=== PATIENT | female | born 1970 | race Caucasian/White ===

== ENCOUNTER 2018-11-30 17:59 | Emergency (ER) | payer SELFPAY ==
[2018-11-30] MEDS ORDERED: Ketorolac 60 MG/2 ML SDV IM ONE (18:23)
--- NOTE | 2018-11-30 18:30 | EDM.PDOC ---
ED HPI GENERAL MEDICAL PROBLEM - General Chief Complaint: Back Pain or Injury Stated Complaint: BACK INJURY Time Seen by Provider: 11/30/18 18:09 Source of Information: Reports: Patient History Limitations: Reports: No Limitations - History of Present Illness INITIAL COMMENTS - FREE TEXT/NARRATIVE: HISTORY AND PHYSICAL: History of present illness: Patient is a 48-year-old female presents to the ED today with concern of mid back pain/spasm since this morning. Patient states she was in the shower washing her hair when she began to feel like the muscles were phil in her mid back. Patient states over the course of the day she's noticed that it's been feeling more tight. Patient denies any trauma or injury. Patient denies any other symptoms. Patient denies any health history. Patient denies any loss or retention of bowel and bladder function. Patient denies any saddle anesthesia. Patient denies fever, chills, chest pain, shortness of breath, or cough. Denies headache, neck stiff ness, change in vision, syncope, or near syncope. Denies nausea, vomiting, abdominal pain, diarrhea, constipation, or dysuria. Has not noted any blood in urine or stool. Patient has been eating and drinking appropriately. Review of systems: As per history of present illness and below otherwise all systems reviewed and negative. Past medical history: As per history of present illness and as reviewed below otherwise noncontributory. Surgical history: As per history of present illness and as reviewed below otherwise noncontributory. Social history: See social history for further information Family history: As per history of present illness and as reviewed below otherwise noncontributory. Physical exam: General: Patient is alert, oriented, and in no acute distress. Patient sitting comfortably on exam table. HEENT: Atraumatic, normocephalic, pupils equal and reactive bilaterally, negative for conjunctival pallor or scleral icterus, mucous membranes moist, TMs normal bilaterally, throat clear, neck supple, nontender, trachea midline. No drooling or trismus noted. No meningeal signs. No hot potato voice noted. Lungs: Clear to auscultation, breath sounds equal bilaterally, chest nontender. Heart: S1S2, regular rate and rhythm without overt murmur Abdomen: Soft, nondistended, nontender. Negative for masses or hepatosplenomegaly. Negative for costovertebral tenderness. Pelvis: Stable nontender. Genitourinary: Deferred. Rectal: Deferred. Skin: Intact, warm, dry. No lesions or rashes noted. Extremities: Atraumatic, negative for cords or calf pain. Neurovascular unremarkable. No obvious deformity of the complete spine. No step-offs or crepitus on palpation. Patient does have moderate pain to palpation of the paraspinous muscles surrounding the thoracic spine but no point tenderness of the complete spine and spinous process. Patient has full range of motion of the cervical and lumbar spine but limited range of motion of thoracic due to pain. Neuro: Awake, alert, oriented. Cranial nerves II through XII unremarkable. Cerebellum unremarkable. Motor and sensory unremarkable throughout. Exam nonfocal. Notes: Discussed the importance for follow-up with primary care provider Voices understanding and is agreeable to plan of care. Denies any further questions or concerns at this time. Diagnostics: thoracic x-ray Therapeutics: Toradol Prescription: diclofenac, Flexeril Impression: Thoracic back pain Plan: 1. Rest, ice or heat the affected area. You can apply ice and/or heat 15 minutes on, 15 minutes off. 2. Tylenol as directed for pain management or discomfort. Take medication as prescribed 3. Follow up with the primary care provider as discussed. Return to the ED as needed and as discussed. Definitive disposition and diagnosis as appropriate pending reevaluation and review of above. Back Pain Score (Numeric/FACES): 7 - Related Data Allergies Allergy/AdvReac Type Severity Reaction Status Date / Time No Known Allergies Allergy Verified 11/30/18 18:10 Home Meds: Home Meds . [No Known Home Meds] 11/30/18 [History] Past Medical History Other Musculoskeletal History: right knee pain - Infectious Disease History Infectious Disease History: Reports: Chicken Pox Social & Family History - Family History Family Medical History: Noncontributory - Tobacco Use Smoking Status *Q: Current Every Day Smoker Years of Tobacco use: 29 Packs/Tins Daily: 1 - Caffeine Use Caffeine Use: Reports: Coffee - Recreational Drug Use Recreational Drug Use: No ED ROS GENERAL - Review of Systems Review Of Systems: ROS reveals no pertinent complaints other than HPI. ED EXAM, GENERAL - Physical Exam Exam: See Below (see dictation) Course - Vital Signs Last Recorded V/S: Last Vital Signs Temp 36.6 C 11/30/18 18:11 Pulse 95 11/30/18 18:11 Resp 16 11/30/18 18:11 BP 147/100 H 11/30/18 18:11 Pulse Ox 95 11/30/18 18:11 - Orders/Labs/Meds Orders: Active Orders 24 hr Category Date Time Status CULTURE URINE [RM] Stat Lab 11/30/18 18:53 Received Labs: Laboratory Tests 11/30/18 Range/Units 18:53 Urine Color YELLOW Urine Appearance HAZY Urine pH 5.5 (5.0-8.0) Ur Specific [place] >= 1.030 (1.001-1.035) Urine Protein NEGATIVE (NEGATIVE) mg/dL Urine Glucose (UA) NEGATIVE (NEGATIVE) mg/dL Urine Ketones NEGATIVE (NEGATIVE) mg/dL Urine Occult Blood NEGATIVE (NEGATIVE) Urine Nitrite NEGATIVE (NEGATIVE) Urine Bilirubin NEGATIVE (NEGATIVE) Urine Urobilinogen 0.2 (<2.0) EU/dL Ur Leukocyte Esterase TRACE H (NEGATIVE) Urine RBC 1-3 (0-2/HPF) Urine WBC 2-4 (0-5/HPF) Ur Epithelial Cells MANY (NONE-FEW) Urine Bacteria FEW (NEGATIVE) Urine Mucus LIGHT (NONE-MOD) Meds: Medications Discontinued Medications Generic Name Dose Route Start Last Admin Trade Name Freq PRN Reason Stop Dose Admin Ketorolac Tromethamine 60 mg 11/30/18 18:23 11/30/18 18:58 Toradol IM 11/30/18 18:24 60 mg ONETIME ONE Administration Departure - Departure Time of Disposition: 19:39 Disposition: Home, Self-Care 01 Clinical Impression: Thoracic back pain Qualifiers: Chronicity: acute Back pain laterality: unspecified Qualified Code(s): M54.6 - Pain in thoracic spine - Discharge Information Referrals: PCP,Unknown [Primary Care Provider] - Forms: ED Department Discharge Additional Instructions: The following information is given to patients seen in the emergency department who are being discharged to home. This information is to outline your options for follow-up care. We provide all patients seen in our emergency department with a follow-up referral. The need for follow-up, as well as the timing and circumstances, are variable depending upon the specifics of your emergency department visit. If you don't have a primary care physician on staff, we will provide you with a referral. We always advise you to contact your personal physician following an emergency department visit to inform them of the circumstance of the visit and for follow-up with them and/or the need for any referrals to a consulting specialist. The emergency department will also refer you to a specialist when appropriate. This referral assures that you have the opportunity for follow-up care with a specialist. All of these measure are taken in an effort to provide you with optimal care, which includes your follow-up. Under all circumstances we always encourage you to contact your private physician who remains a resource for coordinating your care. When calling for follow-up care, please make the office aware that this follow-up is from your recent emergency room visit. If for any reason you are refused follow-up, please contact the [facility] Emergency Department at and asked to speak to the emergency department charge nurse. [facility] [address] [place], [place] [id number] [place] [address] 1. Rest, ice or heat the affected area. You can apply ice and/or heat 15 minutes on, 15 minutes off. 2. Tylenol as directed for pain management or discomfort. Take medication as prescribed 3. Follow up with the primary care provider as discussed. Return to the ED as needed and as discussed. - My Orders Last 24 Hours: My Active Orders 11/30/18 18:53 CULTURE URINE [RM] Stat - Assessment/Plan Last 24 Hours: My Active Orders 11/30/18 18:53 CULTURE URINE [RM] Stat
--- NOTE | 2018-11-30 19:39 | CR ---
2 views of the thoracic and lumbar spine. INDICATION: Pain. IMPRESSION: Underpenetrated lower thoracic region no other significant abnormality of the spine. No signs of compression fracture. Incidental calcified plaques in the abdominal aorta. FINDINGS: The lateral view is not optimally penetrated in the lower thoracic. Minimal broad-based curvature convex right. No listhesis. Disc spaces are normal. No obvious visualized compression fractures, lytic or sclerotic changes. Dictated by Jorge West MD @ Nov 30 2018 7:37PM Signed by Dr. Jorge West @ Nov 30 2018 7:37PM
[2018-11-30 19:53] VITALS: BP 147/92
== END 2018-11-30 19:51 | disposition home or self-care (01) ==
LOC: MW.ED 17:59
DX: M54.6 Pain in thoracic spine (principal); F17.210 Nicotine dependence, cigarettes, uncomplicated
CPT/HCPCS: 72080; 81001; 87086; 87088; 87186; 96372; 99283; J1885

== ENCOUNTER 2020-03-27 15:15 | Emergency (ER) | payer BC ==
[2020-03-27] MEDS ORDERED: Ketorolac 60 MG/2 ML SDV IM ONE (15:54)
--- NOTE | 2020-03-27 15:58 | EDM.PDOC ---
ED HPI GENERAL MEDICAL PROBLEM - General Chief Complaint: Back Pain or Injury Stated Complaint: BACK PAIN CAN NOT BEND Time Seen by Provider: 03/27/20 15:19 Source of Information: Reports: Patient History Limitations: Reports: No Limitations - History of Present Illness INITIAL COMMENTS - FREE TEXT/NARRATIVE: HISTORY AND PHYSICAL: History of present illness: Patient is a 49-year-old female who presents emergency room today with concern of low back pain that started last night and worsened this morning when she woke up. Patient states her low back feels "stiff ". Patient states that she has had this low back pain before about 1 year ago and states that she had imaging performed in did not find anything causing her symptoms on imaging but states at that time she did have a urinary tract infection. Patient states that she has not had low back pain since. Patient denies any direct trauma or injury. Patient denies any saddle anesthesia or loss or retention of bowel bladder function. Patient states that she has been able to walk but does have pain with bending over. Patient denies any other associated symptoms. Patient denies fever, chills, chest pain, shortness of breath, or cough. Denies headache, neck stiff ness, change in vision, syncope, or near syncope. Denies nausea, vomiting, abdominal pain, diarrhea, constipation, or dysuria. Has not noted any blood in urine or stool. Patient has been eating and drinking appropriately. Review of systems: As per history of present illness and below otherwise all systems reviewed and negative. Past medical history: As per history of present illness and as reviewed below otherwise noncontributory. Surgical history: As per history of present illness and as reviewed below otherwise noncontributory. Social history: See social history for further information Family history: As per history of present illness and as reviewed below otherwise noncontributory. Physical exam: General: Patient is alert, oriented, and in no acute distress. Patient sitting comfortably on exam table. Vitals stable and reviewed by me. HEENT: Atraumatic, normocephalic, pupils equal and reactive bilaterally, negative for conjunctival pallor or scleral icterus, mucous membranes moist, TMs normal bilaterally, throat clear, neck supple, nontender, trachea midline. No drooling or trismus noted. No meningeal signs. No hot potato voice noted. Lungs: Clear to auscultation, breath sounds equal bilaterally, chest nontender. Heart: S1S2, regular rate and rhythm without overt murmur Abdomen: Soft, nondistended, nontender. Negative for masses or hepatosplenomegaly. Negative for costovertebral tenderness. Pelvis: Stable nontender. Genitourinary: Deferred. Rectal: Deferred. Skin: Intact, warm, dry. No lesions or rashes noted. Extremities: No obvious deformity of the complete spine. No step-offs, crepitus, or point tenderness to palpation of the complete spine. Patient does have full range of motion of the complete spine but does have pain with range of motion of the lumbar spine. Heel toe gait intact, Patellar reflex intact bilaterally. sLR intact bilaterally. Otherwise, atraumatic, negative for cords or calf pain. Neurovascular unremarkable. Neuro: Awake, alert, oriented. Cranial nerves II through XII unremarkable. Cerebellum unremarkable. Motor and sensory unremarkable throughout. Exam nonfocal. Notes: Upon reevaluation of patient, she expresses improvement in symptoms today in the ED. Strict return precautions thoroughly discussed with patient. Discussed the importance for follow up with a primary care provider. Voices understanding and is agreeable to plan of care. Denies any further questions or concerns at this time. Diagnostics: UA/Uhcg (patient offered XR of lumbar spine but she declines) Therapeutics: Toradol Prescription: Bactrim DS, Diclofenac, Flexeril Impression: Low back pain Urinary tract infection Plan:. 1. When resting please lay on a flat firm surface. Limit your mobility to prevent muscle stiffness. Get up to ambulate/move around/gentle stretching multiple times throughout the day. May alternate heat and ice to painful areas. 2. Tylenol as needed for back pain. Otherwise, take the prescribed Flexeril and diclofenac as directed. Diclofenac as an anti-inflammatory medication so do not take any additional NSAIDs with this medication, such as naproxen, ibupro fen, or Aleve. Flexeril, this medication may cause drowsiness, so do not take it while driving or needing to be functioning outside of the home. 3. Follow-up with your primary care provider as discussed. Return to the ED as needed and as discussed. Take medication as prescribed. Definitive disposition and diagnosis as appropriate pending reevaluation and review of above. lower back Pain Score (Numeric/FACES): 5 - Related Data Allergies Allergy/AdvReac Type Severity Reaction Status Date / Time No Known Allergies Allergy Verified 03/27/20 15:28 Home Meds: Home Meds Cyclobenzaprine [Flexeril] 10 mg PO TID PRN #9 tab 03/27/20 [Rx] Diclofenac Sodium [Voltaren] 75 mg PO BIDMEALS PRN #15 tab.cr 03/27/20 [Rx] Non-Formulary Medication [NF Drug] 1 each PO DAILY 03/27/20 [History] Sulfamethoxazole/Trimethoprim [Bactrim Ds Tablet] 1 each PO BID #20 tablet 03/27/20 [Rx] Past Medical History Cardiovascular History: Reports: Hypertension Other Musculoskeletal History: right knee pain - Infectious Disease History Infectious Disease History: Reports: Chicken Pox - Past Surgical History HEENT Surgical History: Reports: Oral Surgery Female Surgical History: Reports: Section Musculoskeletal Surgical History: Reports: Arthroscopic Knee Social & Family History - Family History Family Medical History: No Pertinent Family History - Tobacco Use Tobacco Use Status *Q: Current Every Day Tobacco User Years of Tobacco use: 20 Packs/Tins Daily: 1 - Caffeine Use Caffeine Use: Reports: Soda, Tea - Recreational Drug Use Recreational Drug Use: No ED ROS GENERAL - Review of Systems Review Of Systems: Comprehensive ROS is negative, except as noted in HPI. ED EXAM, GENERAL - Physical Exam Exam: See Below (see dictation) Course - Vital Signs Last Recorded V/S: Last Vital Signs Temp 98.1 F 03/27/20 15:29 Pulse 107 H 03/27/20 15:29 Resp 18 03/27/20 15:29 BP 147/84 H 03/27/20 15:29 Pulse Ox 96 03/27/20 15:29 - Orders/Labs/Meds Orders: Active Orders 24 hr Category Date Time Status CULTURE URINE [RM] Stat Lab 03/27/20 16:40 Received Labs: Laboratory Tests 03/27/20 03/27/20 Range/Units 16:40 16:40 Urine Color YELLOW Urine Appearance HAZY Urine pH 6.0 (5.0-8.0) Ur Specific [place] 1.025 (1.001-1.035) Urine Protein NEGATIVE (NEGATIVE) mg/dL Urine Glucose (UA) NEGATIVE (NEGATIVE) mg/dL Urine Ketones TRACE H (NEGATIVE) mg/dL Urine Occult Blood NEGATIVE (NEGATIVE) Urine Nitrite NEGATIVE (NEGATIVE) Urine Bilirubin NEGATIVE (NEGATIVE) Urine Urobilinogen 0.2 (<2.0) EU/dL Ur Leukocyte Esterase TRACE H (NEGATIVE) Urine RBC 0-2 (0-2/HPF) Urine WBC 0-4 (0-5/HPF) Ur Epithelial Cells MODERATE (NONE-FEW) Urine Bacteria 2+ H (NEGATIVE) Urine HCG, Qual NEGATIVE (NEGATIVE) Meds: Medications Discontinued Medications Generic Name Dose Route Start Last Admin Trade Name Freq PRN Reason Stop Dose Admin Ketorolac Tromethamine 60 mg 03/27/20 15:54 03/27/20 16:16 Toradol IM 03/27/20 15:55 60 mg ONETIME ONE Administration Departure - Departure Time of Disposition: 16:59 Disposition: Home, Self-Care 01 Clinical Impression: Low back pain Qualifiers: Chronicity: acute Back pain laterality: bilateral Sciatica presence: without sciatica Qualified Code(s): M54.5 - Low back pain Urinary tract infection Qualifiers: Urinary tract infection type: acute cystitis Hematuria presence: without hematuria Qualified Code(s): N30.00 - Acute cystitis without hematuria - Discharge Information Prescriptions: Sulfamethoxazole/Trimethoprim [Bactrim Ds Tablet] 1 each PO BID #20 tablet Cyclobenzaprine [Flexeril] 10 mg PO TID PRN #9 tab PRN Reason: Spasms Diclofenac Sodium [Voltaren] 75 mg PO BIDMEALS PRN #15 tab.cr PRN Reason: Pain Instructions: Urinary Tract Infection, Adult, [id number] Referrals: PCP,None [Primary Care Provider] - Forms: ED Department Discharge Additional Instructions: The following information is given to patients seen in the emergency department who are being discharged to home. This information is to outline your options for follow-up care. We provide all patients seen in our emergency department with a follow-up referral. The need for follow-up, as well as the timing and circumstances, are variable depending upon the specifics of your emergency department visit. If you don't have a primary care physician on staff, we will provide you with a referral. We always advise you to contact your personal physician following an emergency department visit to inform them of the circumstance of the visit and for follow-up with them and/or the need for any referrals to a consulting specialist. The emergency department will also refer you to a specialist when appropriate. This referral assures that you have the opportunity for follow-up care with a specialist. All of these measure are taken in an effort to provide you with optimal care, which includes your follow-up. Under all circumstances we always encourage you to contact your private physician who remains a resource for coordinating your care. When calling for follow-up care, please make the office aware that this follow-up is from your recent emergency room visit. If for any reason you are refused follow-up, please contact the [facility] Emergency Department at and asked to speak to the emergency department charge nurse. [facility] [address] [place] [address] [id number] [facility] [address] [place] [id number] 1. When resting please lay on a flat firm surface. Limit your mobility to prevent muscle stiffness. Get up to ambulate/move around/gentle stretching multiple times throughout the day. May alternate heat and ice to painful areas. 2. Tylenol as needed for back pain. Otherwise, take the prescribed Flexeril and diclofenac as directed. Diclofenac as an anti-inflammatory medication so do not take any additional NSAIDs with this medication, such as naproxen, ibuprofen, or Aleve. Flexeril, this medication may cause drowsiness, so do not take it while driving or needing to be functioning outside of the home. 3. Follow-up with your primary care provider as discussed. Return to the ED as needed and as discussed. Take medication as prescribed. Sepsis Event Note (ED) - Evaluation Sepsis Screening Result: No Definite Risk - Focused Exam Vital Signs: Vital Signs Temp Pulse Resp BP Pulse Ox 03/27/20 15:29 98.1 F 107 H 18 147/84 H 96 - My Orders Last 24 Hours: My Active Orders 03/27/20 16:40 CULTURE URINE [RM] Stat - Assessment/Plan Last 24 Hours: My Active Orders 03/27/20 16:40 CULTURE URINE [RM] Stat
[2020-03-27 19:01] VITALS: BP 136/67; PULSE 91
== END 2020-03-27 17:12 | disposition home or self-care (01) ==
LOC: MW.ED 15:15
DX: N30.00 Acute cystitis without hematuria (principal); I10 Essential (primary) hypertension; F17.210 Nicotine dependence, cigarettes, uncomplicated
CPT/HCPCS: 81001; 81025; 87086; 87088; 87186; 96372; 99283; J1885

== ENCOUNTER 2022-08-28 08:16 | Day surgery (SDC) | payer BC ==
[~2022-08-28 08:16] MED LIST: FERRIC SUBSULFATE ONE; Iodine/Potassium Iodide 60 ML Bottle ONE; Lactated Ringers 1,000 ML IV SCH; Lidocaine 1% with EPINEPHrine 1:100,000 20 ML MDV ONE; propofoL 0 ML ONE
[2022-08-28] MEDS ORDERED: fentaNYL 100 MCG/2 ML SDV ONE ×2 (08:22→09:18)
[2022-08-28] MEDS ORDERED: Dexmedetomidine 200 MCG/2 ML SDV ONE ×2 (08:23→09:18)
[2022-08-28] MEDS ORDERED: propofoL 50 ML ONE ×2 (09:18→10:27)
[2022-08-28] MEDS ORDERED: Water For Injection, Sterile 20 ML ONE (09:18)
[2022-08-28] MEDS ORDERED: Midazolam 1 MG/ML 2 ML SDV ONE (09:19)
[2022-08-28 09:34] LABS: A/G RATIO 1.1 (0.9-1.6); ALBUMIN 3.7 g/dL (3.4-5.0); BILIRUBIN TOTAL 0.3 mg/dL (0.2-1.0); CALCIUM 8.8 mg/dL (8.5-10.1); CARBON DIOXIDE,CO2 25.3 mmol/L (21.0-32.0); CREATININE 0.8 mg/dL (0.6-1.0); EST CRCL DRUG DOSING (CG) 88.95 mL/min; POTASSIUM,K 4.2 mmol/L (3.5-5.1); PROTEIN TOTAL,TP 7.1 g/dL (6.4-8.2)
[2022-08-28] MEDS ORDERED: Ondansetron 4 MG/2 ML SDV IVPUSH PRN (09:52)
[2022-08-28] MEDS ORDERED: HYDROmorphone 1 MG/ML Syringe IVPUSH PRN (09:52)
[2022-08-28] MEDS ORDERED: Albuterol 0.083% 2.5 MG/3 ML Neb Soln NEB PRN (09:52)
[2022-08-28] MEDS ORDERED: fentaNYL 50 MCG/ML SDV IVPUSH PRN (09:52)
[2022-08-28] MEDS ORDERED: droPERidol 5 MG/2 ML SDV IVPUSH PRN (09:52)
[2022-08-28] MEDS ORDERED: Morphine 2 MG/ML SYRINGE IVPUSH PRN (09:52)
[2022-08-28] MEDS ORDERED: Metoclopramide 10 MG/2 ML SDV IVPUSH PRN (09:52)
[2022-08-28] MEDS ORDERED: Naloxone 0.4 MG/ML SDV IVPUSH PRN (09:52)
[2022-08-28] MEDS ORDERED: Magnesium Sulfate (4.06 MEQ/ML) 5 GM/10 ML SDV ONE (10:13)
[2022-08-28 10:14] LABS: HEMOGLOBIN 13.3 g/dL (12.0-16.0); MEAN CORPUSCULAR HEMOGLOBIN 29.8 pg (27.0-32.0); MEAN CORPUSCULAR HGB CONC 34.1 g/dL (31.0-37.0); MEAN CORPUSCULAR VOLUME 87.4 fL (80.0-98.0); MEAN PLATELET VOLUME 9.7 fL (7.40-12.00); RED BLOOD CELL COUNT 4.46 M/uL (4.30-5.90); WHITE BLOOD CELL COUNT,WBC 7.74 K/uL (4.0-11.0)
[2022-08-28] MEDS ORDERED: Dexamethasone 4 MG/ML 5 ML MDV ONE (10:17)
[2022-08-28] MEDS ORDERED: Ketorolac 30 MG/ML SDV ONE (10:37)
[2022-08-28] MEDS ORDERED: Acetaminophen/oxyCODONE 325-5 MG Tab PO PRN (10:49)
[2022-08-28 11:49] VITALS: BP 90/59; PULSE 71
== END 2022-08-28 12:00 | disposition home or self-care (01) ==
LOC: MW.SDS 08:16
PROVIDERS: ATTEND Obstetrics & Gynecology
DX: C53.0 Malignant neoplasm of endocervix (principal); R87.613 High grade squamous intraepithelial lesion on cytologic smear of cervix (HGSIL); R87.810 Cervical high risk human papillomavirus (HPV) DNA test positive; E87.6 Hypokalemia; F41.9 Anxiety disorder, unspecified; F17.210 Nicotine dependence, cigarettes, uncomplicated; Z79.899 Other long term (current) drug therapy
CPT/HCPCS: 36415; 57461; 58110; 80053; 85027; A9270; J1100; J1885; J2250; J2704; J3010; J3475; J7120; J3490

== ENCOUNTER 2022-11-06 18:39 | Emergency (ER) | payer BC ==
[2022-11-06] MEDS ORDERED: Sodium Chloride 0.9% 1,000 ML IV ONE (19:55)
[2022-11-06 20:03] LABS: BASOPHILS PERCENT AUTO 0.3 % (0.0-1.5); EOSINOPHILS ABSOLUTE AUTO 0.1 K/uL (0.0-0.7); EOSINOPHILS PERCENT AUTO 0.7 % (0.0-7.0); HEMATOCRIT 36.3 % (36.0-46.0); MEAN CORPUSCULAR HEMOGLOBIN 28.6 pg (27.0-32.0); MEAN CORPUSCULAR HGB CONC 33.1 g/dL (31.0-37.0); MEAN CORPUSCULAR VOLUME 86.6 fL (80.0-98.0); MONOCYTES ABSOLUTE AUTO 0.8 K/uL (0.0-0.8); MONOCYTES PERCENT AUTO 6.2 % (0.0-15.0); NEUTROPHILS ABSOLUTE AUTO 9.8 K/uL (1.4-5.7); NEUTROPHILS PERCENT AUTO 76.8 % (48.0-80.0); NRBC ABSOLUTE 0 K/uL; PLATELET COUNT,PLT 490 K/uL (150-400); RED BLOOD CELL COUNT 4.19 M/uL (4.30-5.90); WHITE BLOOD CELL COUNT,WBC 12.72 K/uL (4.0-11.0)
[2022-11-06 20:16] LABS: A/G RATIO 0.9 (0.9-1.6); ALBUMIN 3.6 g/dL (3.4-5.0); BILIRUBIN TOTAL 0.4 mg/dL (0.2-1.0); CALCIUM 9.2 mg/dL (8.5-10.1); CARBON DIOXIDE,CO2 27.3 mmol/L (21.0-32.0); CREATININE 1.2 mg/dL (0.6-1.0); EST CRCL DRUG DOSING (CG) 58.63 mL/min; POTASSIUM,K 3.7 mmol/L (3.5-5.1); PROTEIN TOTAL,TP 7.6 g/dL (6.4-8.2)
[2022-11-06] MEDS ORDERED: Iopamidol 755 MG/ML 500 ML Multipack Bottle IVPUSH ONE (20:34)
[2022-11-06] MEDS ORDERED: Cephalexin 500 MG Cap PO ONE (21:21)
[2022-11-07 00:40] VITALS: BP 115/60; PULSE 83
== END 2022-11-06 21:40 | disposition home or self-care (01) ==
LOC: MW.ED 18:39
DX: T81.49XA Infection following a procedure, other surgical site, initial encounter (principal); L02.211 Cutaneous abscess of abdominal wall; I10 Essential (primary) hypertension; Z79.01 Long term (current) use of anticoagulants
CPT/HCPCS: 36415; 74177; 80053; 83605; 85025; 87040; 96360; 99284; A9270; J7030; Q9967